=== PATIENT | male | born 1980 | race Caucasian/White ===

== ENCOUNTER 2020-03-28 00:14 | Observation (INO) | payer OTHER ==
[2020-03-28] VITALS (7 sets, daily range): BP systolic 104–148; BP diastolic 61–109; Ht 188 cm; Wt 75.0 kg
[~2020-03-28] VITALS: Ht 188 cm; Wt 75.0 kg
--- NOTE | 2020-03-28 01:15 | NUR ---
REPORT TO RUSSELL SEXTON
[2020-03-28] MEDS ORDERED: BACTRIM DS TAB1 EAC1 PO (01:55)
[2020-03-28 03:03] LABS: BASOPHILS 0.1 % (0-2); EOSINOPHILS 0.2 % (0-7); HEMATOCRIT 54.1 % (42.0-54.0); HEMOGLOBIN 18.6 g/dL (13.5-17.5); IMMATURE GRANULOCYTES 0.3 % (0-5); MCH 41.1 pg (26.0-34.0); MCHC 34.4 g/dL (31.0-37.0); MCV 119.4 fL (80.0-100.0); MEAN PLATELET VOLUME 9.6 fL (7.4-10.4); MONOCYTES 7.1 % (2-11); NEUTROPHILS 86.3 % (40-80); PLATELET COUNT 197 10x3/uL (130-400); RBC 4.53 10x6/uL (4.20-6.10); RDW 13.5 % (11.5-14.5); WBC 12.5 10x3/uL (4.8-10.8)
[2020-03-28 03:10] LABS: CALCIUM 8.7 mg/dL (8.5-10.1); CARBON DIOXIDE 26.8 mmol/L (21.0-32.0); CREATININE - SERUM 1.3 mg/dL (0.6-1.3); POTASSIUM - SERUM 3.8 mmol/L (3.5-5.1)
[2020-03-28 03:16] LABS: ALBUMIN 3.6 g/dL (3.4-5.0); BILIRUBIN - TOTAL 0.78 mg/dL (0.2-1.3); PROTEIN - SERUM 7.5 g/dL (6.4-8.2)
--- NOTE | 2020-03-28 16:51 | NUR ---
CAST ON RIGHT LEG. SCD PLACED TO LEFT.
--- NOTE | 2020-03-28 18:47 | NUR ---
0700 BEDSIDE REPORT RECEIVED ASSESSMENT COMPLETE LARGE CAST NOTED TO RIGHT ANKLE DTV
--- NOTE | 2020-03-28 18:48 | NUR ---
PT STATED THAT PT IS NON WEIGHT-BEARING TO RLE
--- NOTE | 2020-03-28 18:48 | NUR ---
1600 PT VOIDED 450 CLEAR CYRIL URINE
--- NOTE | 2020-03-28 19:00 | NUR ---
RECEIVED REPORT, ASSUMED CARE, BREATHING EVEN UNLABORED, DENIES NEEDS, BED LOWEST POSITION, CALL LIGHT IN REACH, URINAL AT BEDSIDE, A&O X3, IV TO RW PATENT, NO S/S OF DISTRESS NOTED
[2020-03-29] VITALS: BP 160/97
--- NOTE | 2020-03-29 03:38 | NUR ---
I have reviewed this patient and I concur with the Shift Assessment completed by the Licensed Practical Nurse today this shift.
[2020-03-29 04:00] VITALS: BP 151/100
--- NOTE | 2020-03-29 07:52 | NUR ---
DENIES NEEDS AT PRESENT. CALL LIGHT IN REACH
[2020-03-29 09:05] VITALS: BP 158/105
[2020-03-29] MEDS ORDERED: TYLENOL W/CODEI1 TAB PO (11:16)
--- NOTE | 2020-03-29 12:17 | NUR ---
BROUGHT PATIENT DC PAPERS TO HIM AND PATIENT AND FATHER HAD QUESTIONS IN REGARDS TO PATIENT'S XRAYS, LABS AND BROKEN RIBS. STATED THEY WANTED TO TALK TO DOCTOR IN REGARDS TO QUESTIONS UNANSWERED. PAGED DR ROMO, CONTINUE WITH PLAN OF CARE
--- NOTE | 2020-03-29 12:51 | NUR ---
WENT OVER PATIENT DC PAPERS AND FOLLOW UP APPOINTMENTS WITH PT AND FATHER. ALL QUESTIONS ANSWERED, PT IV IN HAND DC WITH CATHETER INTACT. COTNIBNUE WITH PLAN OF CARE
== END 2020-03-29 14:18 | disposition home or self-care (01) ==
LOC: D.ER 00:14 → D.MS 02:55 → D.EDHOLD 02:55 → OBSVTIME 02:55 → D.MS 03:33
PROVIDERS: Emergency Medicine; ADMIT Surgery; ATTEND Surgery
DX: S27.0XXA Traumatic pneumothorax, initial encounter (principal); W19.XXXA Unspecified fall, initial encounter; S22.41XA Multiple fractures of ribs, right side, initial encounter for closed fracture; T79.7XXA Traumatic subcutaneous emphysema, initial encounter; S27.329A Contusion of lung, unspecified, initial encounter